=== PATIENT | female | born 1985 | race Caucasian/White ===

== ENCOUNTER 2016-11-17 10:11 | Emergency (ER) | payer MEDICAID ==
[~2016-11-17] VITALS: Ht 162.6 cm; Wt 90.0 kg
[~2016-11-17 10:11] MED LIST: PRENATALS
[2016-11-17 10:16] VITALS: Ht 162.6 cm; Wt 90.0 kg
[2016-11-17 10:53] LABS: URINE BLOOD (Dip) POC 2+ (NEGATIVE)
[2016-11-17] MEDS ORDERED: IBUPROFEN 600 MG TAB PO ONE (11:00)
--- NOTE | 2016-11-17 11:55 | RADRPT ---
PROCEDURE: US Pelvis CLINICAL INDICATION: Pelvic pain. TECHNIQUE: Transabdominal and transvaginal sonographic evaluation of the pelvis was performed. COMPARISON: None. FINDINGS: Myometrium is heterogeneous in echotexture with a poorly defined fibroid suggested at the fundus chantal suring up to 4.9 cm. There is poor visualization of the endometrium. Normal flow to both ovaries. No adnexal mass. There is a left ovarian cyst measuring up to 4.1 cm with minimal internal echoes suggestive of mild blood products. No free pelvic fluid. MEASUREMENTS: Uterus: 8.7 x 5.0 x 5.4 cm, anteverted. Right ovary size: 3.9 x 2.7 x 3.7 cm Left ovary size: 4.8 x 53.3 x 5.1 cm IMPRESSION: Heterogeneous uterus with poor visualization of the endometrium. A 4.9 cm ill-defined fibroid sugge sted at the uterine fundus. Left ovarian cyst, 4.1 cm. No free fluid or fluid collection. RPTAT: EE .Martin Lopes MD, Date Time Electronically viewed and signed by .Martin Lopes MD, on 11/17/2016 12:00 .C/
[2016-11-17] MEDS ORDERED: IBUP-1542 PO (12:05)
--- NOTE | 2016-11-17 12:14 | ERD ---
ER Documentation Chief Complaint Date/Time DATE: 11/17/16 TIME: 12:11 Chief Complaint pelvic pain vag bleeding x4 wks, denies HPI This 31-year-old female complains of pelvic pain and vaginal bleeding for 4 weeks. She denies and had a recent negative test. Nausea vomiting. She denies any vaginal discharge ROS All systems reviewed and are negative except as per history of present illness. Medications Home Meds Active Scripts Ibuprofen* (Motrin*) 600 Mg Tab, 600 MG PO Q6, #20 TAB Prov:QIANA ROBERTO MD 11/17/16 Reported Medications [Prenatals] No Conflict Check 12/16/11 Allergies Allergies: Coded Allergies: No Known Drug Allergies (Unverified Allergy, Unknown, 11/17/16) PMhx/Soc Medical and Surgical Hx: pt denies Medical Hx, pt denies Surgical Hx History of Surgery: No Anesthesia Reaction: No Hx Neurological Disorder: No Hx Respiratory Disorders: No Hx Cardiac Disorders: No Hx Psychiatric Problems: No Hx Miscellaneous Medical Probl: No Hx Alcohol Use: No Hx Substance Use: No Hx Tobacco Use: No Physical Exam Vitals Vital Signs Date Time Temp Pulse Resp B/P Pulse Ox O2 Delivery O2 Flow Rate FiO2 11/17/16 10:16 98.3 82 18 149/104 98 Physical Exam Const: []Alert, not ill-appearing. Head: Atraumatic Eyes: Normal Conjunctiva ENT: Normal External Ears, Nose and Mouth. Neck: Full range of motion..~ No meningismus. Resp: Clear to auscultation bilaterally Cardio: Regular rate and rhythm, no murmurs Abd: Soft, Mildly tender pubic area. Attention McBurney's point no rebound and no masses no Henriquez sign., non distended. Normal bowel sounds Skin: No petechiae or rashes Back: No midline or flank tenderness Ext: No cyanosis, or edema Neur: Awake and alert Psych: Normal Mood and Affect Results 24 hrs Laboratory Tests Test 11/17/16 11:00 Bedside Urine pH (LAB) 7.0 Bedside Urine Protein (LAB) Negative Bedside Urine Glucose (UA) Negative Bedside Urine Ketones (LAB) Negative Bedside Urine Blood 2+ Bedside Urine Nitrite (LAB) Negative Bedside Urine Leukocyte Esterase (L Negative Current Medications Medications (Trade) Dose Ordered Sig/Kristina Route PRN Reason Start Time Stop Time Status Last Admin Dose Admin Ibuprofen (Motrin) 600 mg ONCE ONCE PO 11/17/16 11:00 11/17/16 11:01 DC 11/17/16 10:51 Procedures/MDM HCG is negative. Urine shows trace blood without leukocytes, nitrates, glucose per pelvic ultrasound shows approximate 5 cm uterine fibroid in the fundus but is also a 4 cm left ovarian cyst. There is no evidence of ectopic or ovarian torsion.Patient presents with a 4 week history of pelvic pain and signs of ovarian cyst as well as an area of fibroid. There is no evidence of torsion , ectopic , appendicitis. Symptoms do not suggest PID there is no evidence of tubo-ovarian abscess. 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 The patient was stable with no new complaints during the ER course. Clinically, there is no current evidence to suggest meningitis, sepsis, acute abdomen, pneumonia, acute coronary syndrome, pulmonary embolism, or any other emergent condition appearing to require further evaluation or hospitalization. The patient should certainly return for any new or worsening symptoms per the aftercare instructions. They should otherwise follow-up with her primary care doctor for reevaluation this week. Departure Diagnosis: Primary Impression: Acute pain in female pelvis Condition: Stable Patient Instructions: Ovarian Cyst, Pelvic Pain, Unknown Cause, Uterine Fibroids Referrals: DEHYDROGENATION SUPERVISOR [place] [id number] [facility] [address] [place], [place] [phone] [address]ABUSLEME PAUL [address] [place] [place] [phone] [facility] [address] [place], [place] [phone] SISSY REGAN [address] [facility] [phone] [address]IAN [address] [id number] [place], [place] [phone] [facility] [address] [place], [place] [phone] [address] [facility] [id number] - [address] CHEW, GI[place] [address] [facility] [address] [address] SINGH, [place] [address] [facility]. [address], [facility] [address] [address] CROSS, [place] [id number] [place] [address] Additional Instructions: HAY UN CYSTE Y FIBROMA. Va al quintana doctor/ specialista para mas evaluacon en el proximo semana. posiblemente necesita autorizado de quintana doctor primario para specialista. Regresa para fiebre, o mas o nueva simptomas. QIANA ROBERTO MD Nov 17, 2016 12:14
== END 2016-11-17 12:14 | disposition home or self-care (01) ==
LOC: FTE 10:11
DX: R10.2 Pelvic and perineal pain (principal)
CPT/HCPCS: 76830; 76856; 81003; Z7502; Z7610

== ENCOUNTER 2016-11-18 11:12 | Emergency (ER) | payer MEDICAID ==
[~2016-11-18] VITALS: Ht 160 cm; Wt 78.9 kg
[~2016-11-18 11:12] MED LIST changes: +IBUP-1542 PO
[2016-11-18 11:19] VITALS: Ht 160 cm; Wt 78.9 kg
--- NOTE | 2016-11-18 13:03 | ERA ---
ER Documentation Chief Complaint Date/Time DATE: 11/18/16 TIME: 13:01 Chief Complaint here yesterday c/o vaginal bleeding HPI The patient is a 41-year-old female, presenting to the ER because she has had vaginal bleeding for the last 5 weeks, getting worse. She complained of dizzy and weakness; she was seen in the ER yesterday and had a ultrasound that show fibroid and left ovarian cyst. She went to the clinic today for follow-up who sent her to the ER because of generalized weakness and persistent vaginal bleeding. She denies syncope, near syncope, neck pain, chest pain, complains of vague and diffuse abdominal discomfort, denies dysuria, diarrhea, constipation; she does not smoke nor drink Past medical/surgical history: None ROS All systems reviewed and are negative except as per history of present illness. Medications Home Meds Active Scripts Ibuprofen* (Motrin*) 600 Mg Tab, 600 MG PO Q6, #20 TAB Prov:QIANA ROBERTO MD 11/17/16 Reported Medications [Prenatals] No Conflict Check 12/16/11 Allergies Allergies: Coded Allergies: No Known Drug Allergies (Unverified Allergy, Unknown, 11/18/16) PMhx/Soc Medical and Surgical Hx: pt denies Medical Hx, pt denies Surgical Hx History of Surgery: No Anesthesia Reaction: No Hx Neurological Disorder: No Hx Respiratory Disorders: No Hx Cardiac Disorders: No Hx Psychiatric Problems: No Hx Miscellaneous Medical Probl: No Hx Alcohol Use: No Hx Substance Use: No Hx Tobacco Use: No Smoking Status: Never smoker Physical Exam Vitals Vital Signs Date Time Temp Pulse Resp B/P Pulse Ox O2 Delivery O2 Flow Rate FiO2 11/18/16 11:19 98.1 78 18 140/76 99 Physical Exam Const: No acute distress.Pale Head: Atraumatic. Eyes: Normal Conjunctiva. ENT: Normal External Ears, Nose and Mouth. Neck: Full range of motion. No meningismus. Resp: Clear to auscultation bilaterally. Cardio: Regular rate and rhythm. Abd: Soft, non distended, normal bowel sounds, non tender. Skin: No petechiae or rashes. Back: No midline or flank tenderness. Ext: No cyanosis, or edema. Neur: Awake and alert. No focal deficit Psych: Normal Mood and Affect. Result Diagram: 11/18/16 1250 11/18/16 1250 Results 24 hrs Laboratory Tests Test 11/18/16 12:50 White Blood Count 9.210^3/ul Red Blood Count 4.1710^6/ul Hemoglobin 12.7g/dl Hematocrit 38.7% Mean Corpuscular Volume 92.8fl Mean Corpuscular Hemoglobin 30.5pg Mean Corpuscular Hemoglobin Concent 32.8g/dl Red Cell Distribution Width 12.4% Platelet Count 12447^3/UL Mean Platelet Volume 9.8fl Neutrophils % 51.4% Lymphocytes % 36.0% Monocytes % 5.9% Eosinophils % 5.1% Basophils % 0.4% Nucleated Red Blood Cells % 0.0/100WBC Neutrophils # 4.810^3/ul Lymphocytes # 3.310^3/ul Monocytes # 0.510^3/ul Eosinophils # 0.510^3/ul Basophils # 0.010^3/ul Nucleated Red Blood Cells # 0.010^3/ul Prothrombin Time 12.9Sec Prothrombin Time Ratio 1.0 INR International Normalized Ratio 0.97 Activated Partial Thromboplast Time 27.3Sec Sodium Level 138mmol/L Potassium Level 3.9mmol/L Chloride Level 106mmol/L Carbon Dioxide Level 27mmol/L Anion Gap 9 Blood Urea Nitrogen 6mg/dl Creatinine 0.65mg/dl Glucose Level 106mg/dl Calcium Level 9.2mg/dl Total Bilirubin 0.2mg/dl Direct Bilirubin 0.00mg/dl Indirect Bilirubin 0.2mg/dl Aspartate Amino Transf (AST/SGOT) 29IU/L Alanine Aminotransferase (ALT/SGPT) 38IU/L Alkaline Phosphatase 62IU/L Total Protein 7.0g/dl Albumin 4.0g/dl Globulin 3.00g/dl Albumin/Globulin Ratio 1.33 Lipase 60U/L Serum HCG, Qualitative NEGATIVE Procedures/MDM EKG: Read by emergency physician Rate/Rhythm: Normal Sinus Rhythm 70 beats/min QRS, ST, T-waves: No ST elevation, no T inversion Impression: Normal EKG MEDICAL MAKING DECISION: The patient is a 31-year-old female, presenting with intermittent vaginal spotting due to fibroid. She is hemodynamically stable, not anemic. She is stable for outpatient follow-up. Next The differential diagnoses considered include but are not limited to PID, ovarian cyst, endometriosis, fibroids, appendicitis. Departure Diagnosis: Primary Impression: Fibroid Condition: Good Comments I discussed the findings with the patient. I advised the patient to follow-up with the primary physician in about 1-2 days, sooner if needed and return if any concern. The patient's blood pressure was elevated (>120/80) but appears stable without evidence of hypertension emergency or urgency. The patient was counseled about the risks of hypertension and urged to pursue outpatient monitoring and therapy within a week with their primary care physician. VISH JERNIGAN MD Nov 18, 2016 13:03
[2016-11-18 13:05] LABS: BASOPHILS % 0.4 % (0.0-2.0); EOSINOPHILS # 0.5 10^3/ul (0.0-0.5); EOSINOPHILS % 5.1 % (0.0-7.0); HEMATOCRIT 38.7 % (37.0-47.0); HEMOGLOBIN 12.7 g/dl (12.0-16.0); LYMPHOCYTES # 3.3 10^3/ul (0.8-2.9); MEAN CORPUSCULAR HEMOGLOBIN 30.5 pg (29.0-33.0); MEAN CORPUSCULAR HGB CONC 32.8 g/dl (32.0-37.0); MEAN CORPUSCULAR VOLUME 92.8 fl (82.0-101.0); MEAN PLATELET VOLUME 9.8 fl (7.4-10.4); MONOCYTE # 0.5 10^3/ul (0.3-0.9); MONOCYTES % 5.9 % (0.0-11.0); NEUTROPHIL # 4.8 10^3/ul (1.6-7.5); NEUTROPHILS % 51.4 % (39.0-77.0); PLATELET COUNT 342 10^3/UL (140-415); RED BLOOD COUNT 4.17 10^6/ul (4.20-5.40); RED CELL DISTRIBUTION WIDTH 12.4 % (11.5-14.5); WHITE BLOOD COUNT 9.2 10^3/ul (4.8-10.8)
[2016-11-18 13:21] LABS: ALBUMIN/GLOBULIN RATIO 1.33; BILIRUBIN,INDIRECT 0.2 mg/dl (0-1.1); BILIRUBIN,TOTAL 0.2 mg/dl (0.2-1.3); CALCIUM 9.2 mg/dl (8.4-10.2); CREATININE 0.65 mg/dl (0.44-1.00); POTASSIUM 3.9 mmol/L (3.5-5.1)
[2016-11-18 13:26] LABS: INR 0.97; PROTIME 12.9 Sec (12.2-14.2)
[2016-11-18 13:27] LABS: PARTIAL THROMBOPLASTIN TIME 27.3 Sec (25.0-35.0)
[2016-11-18 14:32] VITALS: BP 124/89; PULSE 81; RESP 18; TEMP 98
== END 2016-11-18 14:31 | disposition home or self-care (01) ==
LOC: FTE 11:12
DX: D25.9 Leiomyoma of uterus, unspecified (principal); R53.1 Weakness
CPT/HCPCS: 36415; 80053; 83690; 84703; 85025; 85610; 85730; 86850; 86900; 86901; 93005; Z7502; 99284

== ENCOUNTER 2018-01-16 08:36 | Outpatient (CLI) | END 2018-01-16 11:20 | disposition home or self-care (01) ==

== ENCOUNTER 2018-01-27 15:17 | Outpatient (CLI) | END 2018-01-27 19:48 | disposition home or self-care (01) ==

== ENCOUNTER 2018-01-30 07:51 | Inpatient (IN) | END 2018-02-01 16:45 | disposition home or self-care (01) | DRG 807 ==